=== PATIENT | female | born 1970 | race Caucasian/White ===

== ENCOUNTER → 2017-05-30 | Outpatient (CLI) | payer OTHER ==
--- NOTE | 2017-05-30 15:51 | RAD ---
INDICATION: Irregular menses COMPARISON: None. TECHNIQUE: Grayscale and color ultrasound images uterus and adnexa. Transabdominal and transvaginal images obtained. FINDINGS: Uterus: 108 x 62 x 40 cm. Endometrial Stripe: 9 mm. Right Ovary: 21 x 24 x 12 cm. Flow Identified. Left Ovary: 58 x 54 x 28 cm. Flow Identified. Along the left side of the uterus there is a suspected fibroid measuring approximately 45 x 40 x 46 mm. Additional suspected fibroid within the myometrium anteriorly measuring up to 6 mm. Suspected nabothian cysts. There are couple of hypoechoic structures within the left ovary measuring up to 25 mm IMPRESSION: 1. There are couple of suspected fibroids within the uterus. 2. Endometrial stripe measures up to approximately 9-10 mm which is not thickened for a premenopausal patient. 3. There is a couple of hypoechoic lesions within the left ovary. Could be secondary to dominant follicles or small cysts. There is some low-level internal echoes but these could be artifactual in nature. Small amount of internal debris not excluded. 4. Suspected nabothian cysts.
== END | disposition home or self-care (01) ==
LOC: US 13:16
PROVIDERS: ATTEND Nurse Practitioner Family
DX: N92.6 Irregular menstruation, unspecified (principal)
CPT/HCPCS: 76830; 76856

== ENCOUNTER → 2019-01-15 | Outpatient (CLI) | payer OTHER ==
--- NOTE | 2019-01-15 16:27 | RAD ---
EXAM: Lumbar spine, 5 views. HISTORY: Pain. COMPARISON: None. FINDINGS: 5 views lumbar spine are obtained. There is no listhesis. The vertebral bodies are normal in height and the disc spaces are preserved. There are few lower thoracic and upper lumbar endplate Schmorl's nodes. There is facet arthropathy at the mid lower lumbar levels. IMPRESSION: 1. Multilevel degenerative change. 2. No acute osseous finding. Electronically signed by: Tash Felton MD (01/15/2019 4:25 PM) [id number]
== END | disposition home or self-care (01) ==
LOC: DXRAD 15:52
PROVIDERS: ATTEND Physician Assistant Medical
DX: M47.816 Spondylosis without myelopathy or radiculopathy, lumbar region (principal); M51.46 Schmorl's nodes, lumbar region; M12.88 Other specific arthropathies, not elsewhere classified, other specified site
CPT/HCPCS: 72110

== ENCOUNTER → 2021-05-02 | Outpatient (CLI) | payer OTHER ==
--- NOTE | 2021-05-03 10:24 | RAD ---
XR KNEE 3 VIEWS_RT History: Reason: KNEE AND BACK PAIN / Spl. Instructions: / History: Technique: 3 views right knee Comparison: None. Findings: Moderate right knee degenerative changes most prominent within the medial and lateral compartments. O steophyte formation. Joint space narrowing. Small knee joint effusion. No acute fracture. No dislocat ion. Impression: 1. Moderate right knee DJD. Electronically signed by: Anival Baldwin DO (05/03/2021 10:22 AM) [id number]
--- NOTE | 2021-05-03 10:25 | RAD ---
XR LUMBAR SPINE 2-3V History: Reason: KNEE AND BACK PAIN / Spl. Instructions: / History: Technique: 3 views lumbar spine. Comparison: None. Findings: Slight retrolisthesis L5 on S1. Normal vertebral body height. No acute fracture. Mild to moderate deg enerative disc changes most prominent L5-S1. Lower lumbar facet arthropathy. Impression: 1. Multilevel lumbar spondylosis most prominent L5-S1. Electronically signed by: Anival Baldwin DO (05/03/2021 10:23 AM) [id number]
== END ==
LOC: RAD 13:02
PROVIDERS: ATTEND Physician Assistant Medical
DX: M17.11 Unilateral primary osteoarthritis, right knee (principal); M25.761 Osteophyte, right knee; M25.461 Effusion, right knee; M47.817 Spondylosis without myelopathy or radiculopathy, lumbosacral region; M53.87 Other specified dorsopathies, lumbosacral region
CPT/HCPCS: 72100; 73562